=== PATIENT | female | born 1940 | race Caucasian/White ===

== ENCOUNTER 2017-07-19 15:47 | Inpatient (IN) | payer MEDICARE, BC ==
[2017-07-19] MEDS: SOD CHLORIDE 0.9% 1,000 ML IV ×3 (19:24→22:58)
[2017-07-19] MEDS: ONDANSETRON 4 MG INJ IV (19:25)
[2017-07-19 19:45] LABS: WHITE BLOOD COUNT 6.2 10^3/ul (4.8-10.8)
[2017-07-19 19:45] LABS: HEMATOCRIT 42.1 % (37.0-47.0); HEMOGLOBIN 14.1 g/dl (12.0-16.0); MEAN CORPUSCULAR HEMOGLOBIN 29.7 pg (29.0-33.0); MEAN CORPUSCULAR HGB CONC 33.5 g/dl (32.0-37.0); MEAN CORPUSCULAR VOLUME 88.8 fl (82.0-101.0); MEAN PLATELET VOLUME 9.5 fl (7.4-10.4); PLATELET COUNT 279 10^3/UL (140-415); RED BLOOD COUNT 4.74 10^6/ul (4.20-5.40); RED CELL DISTRIBUTION WIDTH 13.7 % (11.5-14.5)
[2017-07-19 19:52] LABS: ADD MAN DIFF? YES; POSITIVE DIFF @See below
[2017-07-19 20:02] LABS: ALANINE AMINOTRANSFERASE 53 IU/L (13-69); ALBUMIN 3.9 g/dl (3.3-4.9); ALBUMIN/GLOBULIN RATIO 1.05; ALKALINE PHOSPHATASE 61 IU/L (42-121); ANION GAP 19 (8-16); ASPARTATE AMINO TRANSFERASE 39 IU/L (15-46); BILIRUBIN,INDIRECT 0.3 mg/dl (0-1.1); BILIRUBIN,TOTAL 0.3 mg/dl (0.2-1.3); BLOOD UREA NITROGEN 24 mg/dl (7-20); CALCIUM 8.8 mg/dl (8.4-10.2); CARBON DIOXIDE 27 mmol/L (21-31); CHLORIDE 92 mmol/L (97-110); CREATININE 1.03 mg/dl (0.44-1.00); GLUCOSE 127 mg/dl (70-220); LIPASE 47 U/L (23-300); POTASSIUM 3.8 mmol/L (3.5-5.1); SODIUM 134 mmol/L (135-144); TOTAL PROTEIN 7.6 g/dl (6.1-8.1)
[2017-07-19 20:13] LABS: TROPONIN-I < 0.012 ng/ml (0.00-0.12)
[2017-07-19 20:42] LABS: BAND NEUTROPHILS #M 1.7 10^3/ul (0.0-0.6); BAND NEUTROPHILS % (M) 28 % (0-4); LYMPHOCYTES #M 0.9 10^3/ul (0.8-2.9); LYMPHOCYTES % (M) 15 % (15-51); METAMYELOCYTES %M 1 % (0-0); MONOCYTE #M 0.6 10^3/ul (0.3-0.9); MONOCYTES % (M) 10 % (0-11); PLATELET ESTIMATE NORMAL; POLYCHROMASIA 2+ (0-0); REACTIVE LYMPHOCYTES #M 0.3 10^3/ul (0.0-0.0); REACTIVE LYMPHOCYTES% (M) 5 % (0-0); SEG NEUT #M 2.6 10^3/ul (1.6-7.5); SEGMENTED NEUTROPHILS (M) % 41 % (39-77); SMUDGE%M 2 % (0-0)
[2017-07-19 21:27] LABS: ADD UMIC NO; UR ASCORBIC ACID NEGATIVE (NEGATIVE); UR BILIRUBIN (Dip) NEGATIVE (NEGATIVE); UR BLOOD (Dip) NEGATIVE (NEGATIVE); UR CLARITY CLEAR (CLEAR); UR COLOR YELLOW (YELLOW); UR GLUCOSE (Dip) NEGATIVE (NEGATIVE); UR KETONES (Dip) TRACE mg/dL (NEGATIVE); UR LEUKOCYTE ESTERASE (Dip) NEGATIVE Leu/ul (NEGATIVE); UR NITRITE (Dip) NEGATIVE (NEGATIVE); UR SPECIFIC GRAVITY (Dip) 1.015 (1.003-1.030); UR TOTAL PROTEIN (Dip) NEGATIVE (NEGATIVE); UR UROBILINOGEN (Dip) NEGATIVE (NEGATIVE)
[2017-07-19] MEDS ORDERED: ONDANSETRON 4 MG INJ IV (23:00)
[2017-07-19] MEDS ORDERED: NACL 0.9% 3 ML SYG IV (23:00)
[2017-07-19] MEDS: AMLODIPINE 2.5 MG TAB PO (23:30)
[2017-07-20 00:32] LABS: LACTIC ACID 1.3 mmol/L (0.5-2.0)
[2017-07-20 01:17] LABS: VALPROATE 19 ug/ml (50-100)
[2017-07-20] MEDS: LABETALOL HCL 20MG INJ IV (01:28)
[2017-07-20] MEDS: SOD CHLORIDE 0.9% 1,000 ML IV ×2 (01:56→11:27)
[2017-07-20 06:19] LABS: WHITE BLOOD COUNT 6.1 10^3/ul (4.8-10.8)
[2017-07-20 06:19] LABS: HEMATOCRIT 35.5 % (37.0-47.0); HEMOGLOBIN 12.1 g/dl (12.0-16.0); MEAN CORPUSCULAR HEMOGLOBIN 30.2 pg (29.0-33.0); MEAN CORPUSCULAR HGB CONC 34.1 g/dl (32.0-37.0); MEAN CORPUSCULAR VOLUME 88.5 fl (82.0-101.0); MEAN PLATELET VOLUME 9.6 fl (7.4-10.4); PLATELET COUNT 255 10^3/UL (140-415); RED BLOOD COUNT 4.01 10^6/ul (4.20-5.40); RED CELL DISTRIBUTION WIDTH 13.8 % (11.5-14.5)
[2017-07-20] MEDS ORDERED: LORAZEPAM 2 MG INJ (06:24)
[2017-07-20] MEDS: LORAZEPAM 2 MG INJ IV (06:26)
[2017-07-20 06:46] LABS: ADD MAN DIFF? YES; POSITIVE DIFF @See below
[2017-07-20 07:03] LABS: HEMOGLOBIN A1C 6.1 % (0-5.9)
[2017-07-20 07:06] LABS: ALANINE AMINOTRANSFERASE 54 IU/L (13-69); ALBUMIN/GLOBULIN RATIO 0.93; ALKALINE PHOSPHATASE 52 IU/L (42-121); ANION GAP 16 (8-16); ASPARTATE AMINO TRANSFERASE 38 IU/L (15-46); BILIRUBIN,INDIRECT 0.2 mg/dl (0-1.1); BILIRUBIN,TOTAL 0.2 mg/dl (0.2-1.3); BLOOD UREA NITROGEN 18 mg/dl (7-20); CALCIUM 7.9 mg/dl (8.4-10.2); CARBON DIOXIDE 25 mmol/L (21-31); CHLORIDE 97 mmol/L (97-110); CREATININE 0.82 mg/dl (0.44-1.00); GLUCOSE 96 mg/dl (70-220); MAGNESIUM 2.1 mg/dl (1.7-2.5); POTASSIUM 3.7 mmol/L (3.5-5.1); SODIUM 134 mmol/L (135-144); TOTAL PROTEIN 6.2 g/dl (6.1-8.1)
[2017-07-20 08:15] LABS: ANISOCYTOSIS 1+ (0-0); BAND NEUTROPHILS #M 1.8 10^3/ul (0.0-0.6); BAND NEUTROPHILS % (M) 31 % (0-4); EOSINOPHILS % (M) 2 % (0-7); LYMPHOCYTES #M 1.4 10^3/ul (0.8-2.9); LYMPHOCYTES % (M) 23 % (15-51); MICROCYTOSIS 1+ (0-0); MONOCYTE #M 0.9 10^3/ul (0.3-0.9); MONOCYTES % (M) 15 % (0-11); PLATELET ESTIMATE NORMAL; REACTIVE LYMPHOCYTES #M 0.3 10^3/ul (0.0-0.0); REACTIVE LYMPHOCYTES% (M) 6 % (0-0); SEG NEUT #M 1.5 10^3/ul (1.6-7.5); SEGMENTED NEUTROPHILS (M) % 23 % (39-77); SMUDGE%M 24 % (0-0)
[2017-07-20] MEDS: METOPROLOL 5 MG INJ IV ×2 (09:15→20:59)
[2017-07-20] MEDS: VALPROATE INJ 500 MG in DEXTROSE 5% 50 ML IVPB (09:50)
[2017-07-20] MEDS: AZTREONAM 1 GM/NS (PMX) 50 ML IVPB ×2 (11:26→22:53)
[2017-07-20] MEDS: LEVETIRACETAM 500 MG (PMX) 100 ML IVPB (11:55)
[2017-07-20] MEDS: hydrALAzine 20 MG INJ IV (12:17)
[2017-07-20] MEDS: VALPROATE INJ 500 MG in SOD CHLORIDE 0.9% 50 ML IVPB ×2 (16:03→21:00)
[2017-07-20] MEDS ORDERED: LOSARTAN 50 MG TAB PO (21:00)
[2017-07-21] MEDS: LORAZEPAM 2 MG INJ IV ×2 (00:50→09:38)
[2017-07-21] MEDS: SOD CHLORIDE 0.9% 1,000 ML IV ×2 (02:12→16:02)
[2017-07-21] MEDS: hydrALAzine 20 MG INJ IV ×2 (03:44→16:02)
[2017-07-21 06:20] LABS: ALANINE AMINOTRANSFERASE 43 IU/L (13-69); ALBUMIN 2.9 g/dl (3.3-4.9); ALBUMIN/GLOBULIN RATIO 0.87; ALKALINE PHOSPHATASE 49 IU/L (42-121); ANION GAP 14 (8-16); ASPARTATE AMINO TRANSFERASE 28 IU/L (15-46); BLOOD UREA NITROGEN 13 mg/dl (7-20); CALCIUM 8.2 mg/dl (8.4-10.2); CARBON DIOXIDE 31 mmol/L (21-31); CHLORIDE 95 mmol/L (97-110); CREATININE 0.67 mg/dl (0.44-1.00); GLUCOSE 98 mg/dl (70-220); POTASSIUM 3.6 mmol/L (3.5-5.1); SODIUM 136 mmol/L (135-144); TOTAL PROTEIN 6.2 g/dl (6.1-8.1)
[2017-07-21] MEDS: AZTREONAM 1 GM/NS (PMX) 50 ML IVPB ×2 (08:44→21:57)
[2017-07-21] MEDS: METOPROLOL 5 MG INJ IV ×2 (08:45→20:57)
[2017-07-21] MEDS: VALPROATE INJ 500 MG in SOD CHLORIDE 0.9% 50 ML IVPB ×2 (09:26→20:56)
[2017-07-21 10:24] LABS: WHITE BLOOD COUNT 8.9 10^3/ul (4.8-10.8)
[2017-07-21 10:25] LABS: HEMATOCRIT 37.3 % (37.0-47.0); HEMOGLOBIN 12.5 g/dl (12.0-16.0); MEAN CORPUSCULAR HEMOGLOBIN 29.8 pg (29.0-33.0); MEAN CORPUSCULAR HGB CONC 33.5 g/dl (32.0-37.0); PLATELET COUNT 338 10^3/UL (140-415); RED BLOOD COUNT 4.19 10^6/ul (4.20-5.40); RED CELL DISTRIBUTION WIDTH 13.5 % (11.5-14.5)
[2017-07-21 10:26] LABS: ADD MAN DIFF? YES
[2017-07-21 11:16] LABS: ANISOCYTOSIS 2+ (0-0); BAND NEUTROPHILS #M 1.6 10^3/ul (0.0-0.6); BAND NEUTROPHILS % (M) 19 % (0-4); GIANT THROMBO% (M) 2 % (0-0); LYMPHOCYTES % (M) 23 % (15-51); MICROCYTOSIS 1+ (0-0); MONOCYTE #M 1.5 10^3/ul (0.3-0.9); MONOCYTES % (M) 17 % (0-11); PLATELET ESTIMATE NORMAL; POLYCHROMASIA 3+ (0-0); REACTIVE LYMPHOCYTES% (M) 1 % (0-0); SEG NEUT #M 3.7 10^3/ul (1.6-7.5); SEGMENTED NEUTROPHILS (M) % 40 % (39-77); SMUDGE%M 8 % (0-0)
[2017-07-22] MEDS: SOD CHLORIDE 0.9% 1,000 ML IV ×2 (00:57→09:27)
[2017-07-22] MEDS: LORAZEPAM 2 MG INJ IV ×4 (03:04→21:57)
[2017-07-22 06:08] LABS: ADD MAN DIFF? NO
[2017-07-22 06:13] LABS: BASOPHILS % 0.3 % (0.0-2.0); EOSINOPHILS # 0.1 10^3/ul (0.0-0.5); EOSINOPHILS % 1.5 % (0.0-7.0); HEMATOCRIT 35.1 % (37.0-47.0); HEMOGLOBIN 11.6 g/dl (12.0-16.0); LYMPHOCYTES # 3.1 10^3/ul (0.8-2.9); LYMPHOCYTES % 46.6 % (15.0-51.0); MEAN CORPUSCULAR HEMOGLOBIN 29.5 pg (29.0-33.0); MEAN CORPUSCULAR VOLUME 89.3 fl (82.0-101.0); MEAN PLATELET VOLUME 8.9 fl (7.4-10.4); MONOCYTES % 15.8 % (0.0-11.0); NEUTROPHIL # 2.3 10^3/ul (1.6-7.5); NEUTROPHILS % 35.5 % (39.0-77.0); PLATELET COUNT 386 10^3/UL (140-415); RED BLOOD COUNT 3.93 10^6/ul (4.20-5.40); RED CELL DISTRIBUTION WIDTH 13.7 % (11.5-14.5)
[2017-07-22 06:13] LABS: WHITE BLOOD COUNT 6.6 10^3/ul (4.8-10.8)
[2017-07-22 06:32] LABS: ANION GAP 14 (8-16); BLOOD UREA NITROGEN 15 mg/dl (7-20); CALCIUM 8.3 mg/dl (8.4-10.2); CARBON DIOXIDE 33 mmol/L (21-31); CHLORIDE 95 mmol/L (97-110); CREATININE 0.65 mg/dl (0.44-1.00); GLUCOSE 80 mg/dl (70-220); POTASSIUM 3.4 mmol/L (3.5-5.1); SODIUM 139 mmol/L (135-144)
[2017-07-22 06:37] LABS: B-TYPE NATRIURETIC PEPTIDE 757 PG/ML (0-450)
[2017-07-22] MEDS: METOPROLOL 5 MG INJ IV ×2 (09:29→21:09)
[2017-07-22] MEDS: VALPROATE INJ 500 MG in SOD CHLORIDE 0.9% 50 ML IVPB ×2 (11:51→21:08)
[2017-07-22] MEDS: ACETAMINOPHEN 325 MG TAB PO (13:46)
[2017-07-22] MEDS: hydrALAzine 20 MG INJ IV (13:46)
[2017-07-23] MEDS: METOPROLOL 5 MG INJ IV ×2 (08:12→21:11)
[2017-07-23] MEDS: VALPROATE INJ 500 MG in SOD CHLORIDE 0.9% 50 ML IVPB ×2 (08:12→21:13)
[2017-07-23] MEDS: LORAZEPAM 2 MG INJ IV ×2 (08:21→22:23)
[2017-07-23] MEDS: POTASSIUM CHLORIDE (SR) 20 MEQ TAB PO (13:41)
[2017-07-24] MEDS: hydrALAzine 20 MG INJ IV (05:30)
[2017-07-24 07:59] LABS: ADD MAN DIFF? NO
[2017-07-24 08:02] LABS: BASOPHILS % 0.3 % (0.0-2.0); EOSINOPHILS # 0.1 10^3/ul (0.0-0.5); HEMATOCRIT 39.2 % (37.0-47.0); LYMPHOCYTES # 3.4 10^3/ul (0.8-2.9); LYMPHOCYTES % 49.6 % (15.0-51.0); MEAN CORPUSCULAR HEMOGLOBIN 29.5 pg (29.0-33.0); MEAN CORPUSCULAR HGB CONC 33.2 g/dl (32.0-37.0); MEAN CORPUSCULAR VOLUME 88.9 fl (82.0-101.0); MEAN PLATELET VOLUME 8.6 fl (7.4-10.4); MONOCYTE # 1.2 10^3/ul (0.3-0.9); MONOCYTES % 17.2 % (0.0-11.0); NEUTROPHIL # 2.2 10^3/ul (1.6-7.5); NEUTROPHILS % 31.2 % (39.0-77.0); PLATELET COUNT 592 10^3/UL (140-415); RED BLOOD COUNT 4.41 10^6/ul (4.20-5.40); RED CELL DISTRIBUTION WIDTH 13.6 % (11.5-14.5)
[2017-07-24 08:02] LABS: WHITE BLOOD COUNT 6.9 10^3/ul (4.8-10.8)
[2017-07-24] MEDS: METOPROLOL 5 MG INJ IV (08:02)
[2017-07-24] MEDS: VALPROATE INJ 500 MG in SOD CHLORIDE 0.9% 50 ML IVPB ×2 (08:03→21:26)
[2017-07-24 08:28] LABS: ANION GAP 15 (8-16); BLOOD UREA NITROGEN 13 mg/dl (7-20); CARBON DIOXIDE 32 mmol/L (21-31); CHLORIDE 98 mmol/L (97-110); CREATININE 0.62 mg/dl (0.44-1.00); GLUCOSE 115 mg/dl (70-220); POTASSIUM 3.3 mmol/L (3.5-5.1); SODIUM 142 mmol/L (135-144)
[2017-07-24] MEDS: POTASSIUM CHLORIDE (SR) 20 MEQ TAB PO (14:19)
[2017-07-24] MEDS: AMLODIPINE 5 MG TAB NGT ×2 (14:19→21:11)
[2017-07-24] MEDS: LORAZEPAM 2 MG INJ IV ×2 (14:37→23:02)
[2017-07-25] MEDS: AMLODIPINE 5 MG TAB NGT ×2 (08:49→21:28)
[2017-07-25] MEDS: VALPROATE INJ 500 MG in SOD CHLORIDE 0.9% 50 ML IVPB ×2 (08:50→21:28)
[2017-07-25] MEDS: ENOXAPARIN 40 MG/0.4 ML SYG SC (16:00)
[2017-07-25] MEDS ORDERED: SOD CHLORIDE 0.9% 100 ML (16:19)
[2017-07-25] MEDS ORDERED: IOHEXOL 100 ML (16:19)
[2017-07-25 16:51] LABS: TROPONIN-I < 0.012 ng/ml (0.00-0.12)
[2017-07-25 20:48] LABS: TROPONIN-I < 0.012 ng/ml (0.00-0.12)
[2017-07-26] MEDS: DIAZEPAM 2 MG TAB PO (00:24)
[2017-07-26 01:49] LABS: TROPONIN-I < 0.012 ng/ml (0.00-0.12)
[2017-07-26] MEDS: LORAZEPAM 2 MG INJ IV (02:00)
[2017-07-26] MEDS: ENOXAPARIN 40 MG/0.4 ML SYG SC (09:00)
[2017-07-26] MEDS: VALPROATE INJ 500 MG in SOD CHLORIDE 0.9% 50 ML IVPB (09:12)
[2017-07-26] MEDS: AMLODIPINE 5 MG TAB NGT (09:13)
[2017-07-26] MEDS ORDERED: LEVETIRACETAM 500 MG TAB PO (21:00)
== END 2017-07-26 18:45 | DRG 641 ==
LOC: FTE 15:47 → PP2 07-24 20:10 → MS1 22:55 → MS4 07-20 08:28
DX: E86.0 Dehydration (principal); N39.0 Urinary tract infection, site not specified; N17.9 Acute kidney failure, unspecified; R56.9 Unspecified convulsions; K52.9 Noninfective gastroenteritis and colitis, unspecified; Z66 Do not resuscitate; F03.90 Unspecified dementia, unspecified severity, without behavioral disturbance, psychotic disturbance, mood disturbance, and anxiety; E87.6 Hypokalemia
CPT/HCPCS: 36415; 70450; 71045; 71275; 74176; 80048; 80053; 80164; 81003; 82962; 83036; 83605; 83690; 83735; 83880; 84443; 84484; 85025; 87081; 87086; 92526; 92610; 93005; 96374; 97110; 97116; 97163; 97530; 99285-25